=== PATIENT | female | born 2000 | race African-American/Black ===

== ENCOUNTER 2022-07-18 22:42 | Emergency (ER) | payer OTHER, BC, SELFPAY ==
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
[2022-07-18 22:52] VITALS: BP 151/103; PULSE 86; RESP 18; TEMP 36.4; O2SAT 100
--- NOTE | 2022-07-18 23:19 | PC.NURSE ---
Patient taken to xray from waiting room at this time.
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
[2022-07-19] MEDS: IBUPROFEN 600 MG TABLET PO (00:28)
[2022-07-19] MEDS: HYDROcodone/acetaminophen (*CRX) 10-325 MG TABLET 1 TAB PO (00:29)
[2022-07-19] MEDS: methocarbamoL 500 MG TABLET PO (01:02)
[2022-07-19 01:10] VITALS: BP 135/98; PULSE 79; RESP 16; O2SAT 99
== END 2022-07-19 01:10 | disposition home or self-care (01) ==
PROVIDERS: Emergency Provider Physician Assistant; PCP Nurse Practitioner Family
DX: S60.311A Abrasion of right thumb, initial encounter (principal); S29.9XXA Unspecified injury of thorax, initial encounter; S80.12XA Contusion of left lower leg, initial encounter; V43.52XA Car driver injured in collision with other type car in traffic accident, initial encounter
CPT/HCPCS: 71101; 73130; 99284; A9270

== ENCOUNTER 2025-04-29 15:32 | Emergency (ER) | payer BC, SELFPAY ==
[2025-04-29 15:59] VITALS: BP 153/113; PULSE 89; RESP 16; TEMP 36.3; O2SAT 100
--- NOTE | 2025-04-29 17:32 | ED_ITS ---
HPI - Female Genitourinary General Chief complaint: Urogenital-Female Stated complaint: yeast infection symptoms Time Seen by Provider: 04/29/25 17:28 Source: patient and RN notes reviewed Mode of arrival: ambulatory Limitations: no limitations History of Present Illness HPI Narrative: 24-year-old female patient presents today complaining of vulvar itching since yesterday. Patient started on amoxicillin for strep throat 5 days ago. States symptoms feel similar to previous vulvovaginal yeast infections. She has tried no OTC treatment prior to arrival. Patient has history of hypertension and takes 5 mg of amlodipine daily. She has not taken her dose today. Upon arrival, her BP was 153/113. Related Data Home Medications ?Medication ?Instructions ?Recorded ?Confirmed ?Last Taken ?Type sumatriptan succinate 25 mg tablet mg PO PRN Migraine Headache 07/18/22 Unknown History amlodipine 5 mg tablet mg 04/29/25 Unknown History amoxicillin 500 mg tablet mg 04/29/25 Unknown History rizatriptan 10 mg tablet mg 04/29/25 Unknown History Allergies Allergy/AdvReac Type Severity Reaction Status Date / Time No Known Allergies Allergy Verified 04/29/25 16:08 [facility] Past Medical History Medical History (Updated 04/29/25 @ 17:36 by Manuela Hansen, ROTARY CUTTER FEEDER, LABORATORY ADMINISTRATIVE DIRECTOR) Hypertension Comments At time of signature, I have reviewed and agree with nursing past medical, surgical, social and family history unless otherwise noted. Please see nursing chart for further information. There is no relevant family history pertinent to the presenting complaint Exam Narrative: GENERAL: Well-appearing, well-nourished, and in no acute distress. HEAD: Normocephalic, atraumatic. EYES: EOMI. No redness or drainage. Conjunctivae normal. ENT: Mucous membranes pink and moist.. NECK: Normal AROM. CHEST: No respiratory distress. EXTREMITIES: Normal range of motion. No edema. SKIN: Warm, dry, no rash. Capillary refill normal. Normal skin turgor. NEURO: No focal deficits. Alert and oriented x3. Gait steady. PSYCH: Normal affect. No signs of depression or anxiety. Course Course Level of Care: Express Care Visit Vital Signs Vital signs: Vital Signs Temperature 97.4 F L 04/29/25 15:59 Pulse Rate 89 04/29/25 15:59 Respiratory Rate 16 04/29/25 15:59 Blood Pressure 153/113 H 04/29/25 15:59 Pulse Oximetry 100 04/29/25 15:59 Temperature 97.4 F L 04/29/25 15:59 Pulse Rate 89 04/29/25 15:59 Respiratory Rate 16 04/29/25 15:59 Blood Pressure 153/113 H 04/29/25 15:59 Pulse Oximetry 100 04/29/25 15:59 Reviewed MDM - Female Genitourinary MDM Narrative Medical decision making narrative: 24-year-old female patient presents today complaining of vulvar itching since yesterday. Patient started on amoxicillin for strep throat 5 days ago. States symptoms feel similar to previous vulvovaginal yeast infections. She has tried no OTC treatment prior to arrival. Patient has history of hypertension and takes 5 mg of amlodipine daily. She has not taken her dose today. Upon arrival, her BP was 153/113. Normal physical exam. Patient will be treated with Diflucan. Recommend taking 1 dose now and 1 dose when finished with the amoxicillin. She can also use some topical clotrimazole in the meantime. Patient agrees with plan. Anticipatory guidance given. Advised to take amlodipine as prescribed. Differential Diagnosis Differential diagnosis: Likely vaginitis and other (Candidal vaginal infection) Critical Care Time Critical Care Time Critical Care Time: No Discharge Plan Discharge Clinical Impression: Vaginal yeast infection Patient Disposition: Home Condition: Stable Instructions: Yeast Infection (ED) Additional Instructions: Please take the Diflucan as prescribed. Take 1 dose now and 1 dose when you are finished with your amoxicillin. You may use some topical Clotrimazole externally if needed. Follow-up with your PCP or OBGYN. Patient Language: Sudanese Prescriptions: New fluconazole 150 mg tablet 150 mg PO Q3D Qty: 2 0RF No Action rizatriptan 10 mg tablet amlodipine 5 mg tablet amoxicillin 500 mg tablet sumatriptan succinate 25 mg Tablet PO PRN (Reason: Migraine Headache) Follow-up/Referrals: PHYSICIAN,VICE PRESIDENT PROCESS [Primary Care Provider, Internal Medicine] Time of Disposition: 17:37
== END 2025-04-29 17:38 | disposition home or self-care (01) ==
PROVIDERS: Emergency Provider Nurse Practitioner
DX: B37.31 Acute candidiasis of vulva and vagina (principal); I10 Essential (primary) hypertension
CPT/HCPCS: 99213; G0463